=== PATIENT | male | born 1975 | race Caucasian/White ===

== ENCOUNTER 2018-06-17 10:37 | Emergency (ER) | payer OTHER ==
[~2018-06-17] VITALS: Ht 182.9 cm; Wt 82.7 kg
[2018-06-17 10:44] VITALS: BP 128/91
[2018-06-17] MEDS ORDERED: HydrOXYzine PAMOATE 50 MG CAPSULE PO ONE (11:30)
== END 2018-06-17 12:24 | disposition home or self-care (01) ==
LOC: EMS 10:38
DX: F41.9 Anxiety disorder, unspecified (principal); F17.210 Nicotine dependence, cigarettes, uncomplicated
CPT/HCPCS: 93005; 99283

== ENCOUNTER 2018-07-10 17:50 | Emergency (ER) | payer OTHER ==
[~2018-07-10] VITALS: Ht 182.9 cm; Wt 81.8 kg
[2018-07-10 20:12] VITALS: BP 120/81
[2018-07-11] MEDS ORDERED: LIB5 PO (22:57)
== END 2018-07-10 20:16 | disposition home or self-care (01) ==
LOC: EMS 17:51
DX: F10.239 Alcohol dependence with withdrawal, unspecified (principal); F12.90 Cannabis use, unspecified, uncomplicated; F17.210 Nicotine dependence, cigarettes, uncomplicated; Y90.9 Presence of alcohol in blood, level not specified
CPT/HCPCS: 99406

== ENCOUNTER 2018-07-11 22:40 | Emergency (ER) | payer OTHER ==
[~2018-07-11] VITALS: Ht 182.9 cm; Wt 82.4 kg
[2018-07-11] MEDS ORDERED: LIB5 PO (22:57)
[2018-07-12 01:28] LABS: BASOPHILS % (AUTO) 0.8 % (0.0-2.0); EOSINOPHILS % (AUTO) 3.4 % (1.0-6.0); HEMOGLOBIN 15.3 g/dL (13.5-17.5); LYMPHOCYTES # (AUTO) 1.5 K/uL (1.0-4.8); LYMPHOCYTES % (AUTO) 40.9 % (22.0-44.0); MEAN CORPUSCULAR HEMOGLOBIN 33.1 pg (26.0-34.0); MEAN CORPUSCULAR HGB CONC 36.4 G/dL (31.0-37.0); MEAN CORPUSCULAR VOLUME 91 fL (80-100); MONOCYTES # (AUTO) 0.4 K/uL (0.1-1.0); MONOCYTES % (AUTO) 10.6 % (2.0-9.0); NEUTROPHILS # (AUTO) 1.6 K/uL (1.8-7.7); NEUTROPHILS % (AUTO) 44.3 % (40.0-70.0); PLATELET COUNT (AUTO) 180 K/uL (150-450); RED BLOOD CELL COUNT(AUTO) 4.62 MIL/uL (4.50-5.90)
[2018-07-12 01:42] LABS: ANION GAP 3 mmol/L (8-16); CALCIUM, TOTAL 8.6 mg/dL (8.8-10.5); CARBON DIOXIDE 33 mmol/L (22-29); CHLORIDE 101 mmol/L (98-107); CREATININE 1.01 mg/dL (0.60-1.30); GLOMERULAR FILTR. RATE CALC > 60 mL/min (>60); GLUCOSE,RANDOM 108 mg/dL (70-110); POTASSIUM 3.7 mmol/L (3.5-5.1); SODIUM SERUM 137 mmol/L (136-145); UREA NITROGEN, BLOOD 9 mg/dL (7-18)
[2018-07-12 01:46] LABS: ALANINE AMINOTRANSFERASE 25 U/L (12-78); ALBUMIN 3.8 g/dL (3.4-5.0); ALKALINE PHOSPHATASE 61 U/L (46-116); ASPARTATE AMINOTRANSFERASE 9 U/L (15-37); BILIRUBIN,TOTAL 0.6 mg/dL (0.1-1.0)
[2018-07-12 02:47] VITALS: BP 148/86
== END 2018-07-12 02:54 | disposition home or self-care (01) ==
LOC: EMS 22:42
DX: R07.9 Chest pain, unspecified (principal); K21.9 Gastro-esophageal reflux disease without esophagitis; F10.20 Alcohol dependence, uncomplicated; F19.10 Other psychoactive substance abuse, uncomplicated; F17.210 Nicotine dependence, cigarettes, uncomplicated; F11.90 Opioid use, unspecified, uncomplicated; F19.90 Other psychoactive substance use, unspecified, uncomplicated
CPT/HCPCS: 93005

== ENCOUNTER 2019-06-26 08:40 | Emergency (ER) | payer OTHER ==
[~2019-06-26] VITALS: Ht 182.9 cm; Wt 81.8 kg
[~2019-06-26 08:40] MED LIST: LIB5 PO
[2019-06-26] MEDS ORDERED: AMOX TR/POT CLAV 500 MG/125 MG TABLET PO ONE (09:30)
[2019-06-26] MEDS ORDERED: ChlordiazePOXIDE HCL 25 MG CAPSULE PO ONE (09:30)
[2019-06-26 09:54] VITALS: BP 143/83
== END 2019-06-26 09:55 | disposition home or self-care (01) ==
LOC: EMS 08:41
DX: K04.7 Periapical abscess without sinus (principal); F10.20 Alcohol dependence, uncomplicated; F17.210 Nicotine dependence, cigarettes, uncomplicated; F11.90 Opioid use, unspecified, uncomplicated; F15.90 Other stimulant use, unspecified, uncomplicated; Z79.899 Other long term (current) drug therapy
CPT/HCPCS: 99406